=== PATIENT | female | born 2005 | race Caucasian/White ===

== ENCOUNTER 2023-08-24 15:33 | Observation (INO) ==
--- NOTE | 2023-08-24 15:41 | ED Triage Note ---
Date of Service August 24, 2023 Provider in Triage Author: Tila Hamlin History of Present Illness This patient was briefly evaluated while in triage. An abbreviated physical exam was performed. This patient is a 18-year-old Female who presents to the ED for evaluation of miscarriage. Evaluated in ED earlier and told she was having miscarriage. States she was told to return if she noticed "anything fleshy" and she did so she returns. Notes increased bleeding. No dizziness/lightheadedness, presyncope or syncope. Physical Exam Constitutional: alert and oriented x3. no acute distress. HEENT: normocephalic, atraumatic. normal conjunctiva.PERRLA. EOM's grossly intact. Respiratory:equal chest rise. normal respiratory effort, no accessory muscle use. Cardiovascular: regular rate and rhythm. MSK: moves all 4 extremities spontaneously Psych:appropriate mood and affect. Initial orders for labs and / or imaging were placed and patient was placed in the waiting area until a bed is available. Please see further documentation for the full ED course.
[2023-08-24] MEDS ORDERED: SODIUM CHLORIDE 0.9% 1,000 ML IV ONE ×2 (16:57→19:05)
[2023-08-24] MEDS ORDERED: MoRPHine SULFATE 4 MG/ML 1 ML CARP\\VIAL IV STA (16:57)
[2023-08-24] MEDS ORDERED: ONDANSETRON INJ 2 MG/ML 2 ML VIAL IV STA (16:57)
--- NOTE | 2023-08-24 17:01 | Emergency Department Note ---
Impression & Plan Missed , Anemia ED Provider Note CHIEF COMPLAINT: Vaginal bleeding, miscarriage HISTORY OF PRESENTING ILLNESS: This 18-year-old female patient presents to the emergency department with her fianc and sister for evaluation of increased vaginal bleeding while having a presumed miscarriage. The patient was seen in the ER earlier today for vaginal bleeding and abdominal cramping. She thought that she was about 12 weeks . She has not seen CLOTHES DESIGNER yet. When she was seen earlier today, laboratory studies were stable with a hemoglobin of 13.6. Serum hCG level was >248,400. The patient's blood type is A negative and she was given RhoGAM in the ER this morning. Pelvic ultrasound showed a viable with the uterus at around 10 weeks 2 days, but the sac was thought to be somewhat low-lying in the uterus and the heartbeat was mildly elevated. CLOTHES DESIGNER was contacted and the patient was to have outpatient follow-up for a threatened . After the patient got home, she stated that she passed what appeared to be a fetus with head, body, fingers and limbs. The patient then started passing large amounts of clots as well as a large amount of bright red blood and she became concerned. She had continued pelvic cramping, but not as bad as this morning. The patient denies any fevers. She denies any chest pain or shortness of breath. She has some mild nausea, but no vomiting. REVIEW OF SYSTEMS: See HPI for pertinent positives and pertinent negatives. ALLERGIES: NKDA MEDICATIONS: None PAST MEDICAL HISTORY: History of Anemia PHYSICAL EXAM: VITALS: Vitals are noted on the nurse's note and reviewed by myself. GENERAL: Non toxic, no acute distress, non-diaphoretic. SKIN: Capillary refill <2 sec. EYES: PERRLA. EOMI. Conjunctivae without injection, sclerae without icterus. NOSE: Patent without discharge. MOUTH: Mucous membranes moist. Uvula midline. Airway patent. NECK: Supple without nuchal rigidity. HEART: Regular rate and rhythm without murmurs gallops or rubs. LUNGS: Clear to auscultation bilaterally without wheezes, rales or rhonchi. No retractions or accessory muscle use. ABDOMEN: Positive bowel sounds x 4. Normal tympanic percussion. Soft, mildly tender to palpation in the suprapubic area. No masses or organomegaly. Urias sign negative. No guarding or rebound tenderness. No focal RLQ or LLQ tenderness. PELVIC EXAM: Permission to perform the exam. Fire Control Technician B in the room for the exam. External genitalia normal. Vaginal canal with a significant amount of bright red bleeding as well as multiple large blood clots. At the time of the initial exam a large blood clot was stuck in the cervical os with the cervical os being open. The bleeding did slow down after the large clot was removed from the cervical os. Repeat pelvic exam showed a similar picture with another large clot being stuck in the cervical os with improved bleeding after the blood clot was removed. Bimanual exam was deferred at this time. NEURO: Patient was alert and oriented. No focal neurological deficits. DIFFERENTIAL DIAGNOSIS: Differential diagnosis includes miscarriage, threatened , ectopic , subchorionic hematoma, placenta previa, coagulopathy, hormonal imbalance, or others. ED COURSE AND MEDICAL DECISION MAKING: MONITOR: Continuous filler shredder: Order was placed for continuous filler shredder. Patient was placed on the filler shredder and continuous pulse ox. Patient was noted to be in normal sinus rhythm at an initial rate of 90 bpm per my interpretation. MEDICATIONS GIVEN: 2 L of normal saline solution bolus. Morphine 4 mg IV and Zofran 4 mg IV. INTERPRETATION OF LABS: I interpreted the labs with full lab results as below in the lab section of this note. White blood cell count elevated at 13.07. Hemoglobin low at 11.8. Platelet count normal at 231. BMP without significant abnormalities. Serum hCG 181,694. INTERPRETATION OF IMAGING: Pelvic ultrasound as reviewed by myself and read by stat rad as below showed a gestational sac in the lower uterine segment and/or cervix which is open. The pole measures 2.49 cm consistent with 9 weeks 1 day. No cardiac activity is present consistent with demise and spontaneous in progress. However, based on the patient's history of passing what appeared to be the fetus as well as Dr. Pascal's evaluation of the ultrasound, the radiologist was contacted again to confirm whether there was a true gestational sac and pole or whether the findings were consistent with retained clot. The radiologist stated that it was difficult to determine the exact etiology of what he saw on the ultrasound. EXTERNAL RECORDS REVIEWED: I reviewed the patient's ER visit and workup from earlier today. CONSULTATIONS: Dr. Pascal of CL[employer] DES[employer]. Stat Rad Radiologist CRITICAL CARE: I have personally spent 60 minutes of critical care time in the direct management of this patient. This includes bedside care, interpretation of diagnostic studies, and testing, discussion with consultants, patient, and family members, and other required patient management activities. This 60 minutes is in excess of all separately billable procedures. MDM SUMMARY: The patient had previously been triaged by another provider and placed back in the waiting room due to abnormally long wait times in the emergency department. While I was then in triage, the check-in staff came to let me know that the patient was having significant vaginal bleeding in the waiting room. The only ER bed available at that time was a shared ER room, but I felt it was necessary to bring the patient back right away as the patient required an emergent pelvic exam due to her significant increase in vaginal bleeding with likely miscarriage. We were unable to obtain a pelvic bed immediately so the pelvic exam was initially performed using a bedpan for elevation. On the initial pelvic exam, the patient had a large amount of bright red vaginal bleeding. Multiple large cotton swabs were used to soak up the vaginal bleeding and multiple large clots were noted within the vaginal canal. Ring forceps were used to remove the large clots. I was finally able to visualize the cervix and there was a large clot within the cervical os which was open. Once I removed the large clot from the cervical os, the bleeding significantly improved. An IV lock was placed and labs were drawn at that time. The patient was given 1 L normal saline solution bolus as well as morphine and Zofran for her pain. Hemoglobin earlier today was 13.6 and her repeat hemoglobin decreased to 11.8. Her serum hCG level went from > 248,400 to 181,694. The patient's blood type is A- and she was already given RhoGAM in the ER earlier today. I spoke with the blood bank in order to hold blood for the patient in case she continued with significant bleeding. They stated that the patient required a repeat type and screen even though she had 1 done earlier today. Therefore, I placed a new order for a type and screen as well as a hold of 2 units of blood. Nursing staff came to get me again saying that the patient had return of significant bleeding. Repeat pelvic exam on a pelvic bed showed that the patient had a large amount of bright red blood in the vaginal canal that was able to be soaked up with large cotton swabs. Again multiple clots were removed with ring forceps and once I was able to visualize the cervical os, a large clot was coming out of the cervical os which was open. Once this clot was removed the vaginal bleeding again significantly improved. A [id number] repeat hemoglobin showed that her hemoglobin decreased down to 9.5. The patient was given a second liter of normal saline solution bolus. While on the monitor, the patient had intermittent episodes of tachycardia as well as hypotension, but her vital signs remained relatively stable. I contacted Dr. Pascal of [employer] at this time. He recommended a repeat pelvic ultrasound to determine whether the patient would require a D&E versus medication treatment. I spoke with the instrumentation and controls technician to prioritize the patient's pelvic ultrasound. Pelvic ultrasound as read by stat rad showed a gestational sac in the lower uterine segment and/or cervix which is open with a pole measuring 9 weeks 1 day with no cardiac activity present. However, based on the patient stating that she passed what sounded like the fetus prior to coming to the emergency department, there was question of whether this ultrasound finding was correct or whether it was a blood clot that was noted within the uterus. The radiologist from stat rad was contacted to try to help try to clarify the ultrasound report without good clarification. Dr. Pascal then performed his own pelvic exam as well as bedside ultrasound for further investigation. Please refer to his dictation for further details. Based on his evaluation, he does not feel that there is obvious tissue present. Therefore, he did not feel there was a strong reason for D&E at this time. The patient was given Pitocin by Dr. Pascal. The patient will be admitted for further evaluation and management to confirm no additional significant blood loss or other complications from her miscarriage. Please refer to Dr. Pascal's dictation for further details. The patient's care was transferred in stable condition. DIAGNOSIS: Missed Anemia Past Med/Surg History Medical History Anemia Social History Smoking Status: Never smoker Second Hand Exposure: No; Hx Alcohol Use: No Hx Substance Use: No Preferred Language: [place] Civil Cadd Technician Required: No Beliefs That Will Affect Care: None Current Living Situation: Significant Other Feels Safe at Home: Yes Safety Concerns: Feels Safe At This Time Assistive Devices: Glasses Allergies Allergies Allergy/AdvReac Type Severity Reaction Status Date / Time No Known Allergies Allergy Unverified 08/24/23 13:00 Home Meds Home Medications Medication Instructions Recorded Confirmed ferrous sulfate 325 mg (65 mg 325 mg PO QAM 04/23/23 08/25/23 iron) tablet (iron) Results & Data (ED) Vital Signs Vital Signs - 24 hr 08/24/23 15:39 08/24/23 19:25 08/24/23 19:30 Temperature 36.6 C Temperature Source Temporal Artery Scan Pulse Rate 101 H 101 H 101 H Pulse Rate [Apical] Pulse Rate from SpO2 Sensor 103 H 105 H Respiratory Rate 20 16 21 Respiratory Effort / Characteristics Non-Labored Respiratory Depth Normal Respiratory Pattern Blood Pressure Blood Pressure [Right Arm] Blood Pressure Mean Blood Pressure Mean [Right Arm] Blood Pressure Position [Right Arm] Pulse Oximetry 99 100 99 Oxygen Delivery Method Room Air Sepsis Recent Fever Within 48 Hours No Sepsis New/Unexplained Change in Mental Status No Sepsis Action Taken by Nursing No Action Required 08/24/23 20:07 08/24/23 20:07 08/24/23 20:08 Temperature Temperature Source Pulse Rate Pulse Rate [Apical] 87 Pulse Rate from SpO2 Sensor Respiratory Rate 18 Respiratory Effort / Characteristics Non-Labored Spontaneous Respiratory Depth Normal Respiratory Pattern Regular Blood Pressure 97/66 L Blood Pressure [Right Arm] 97/66 L Blood Pressure Mean 78 Blood Pressure Mean [Right Arm] 76 Blood Pressure Position [Right Arm] Lying Pulse Oximetry 97 100 Oxygen Delivery Method Room Air Room Air Sepsis Recent Fever Within 48 Hours Sepsis New/Unexplained Change in Mental Status Sepsis Action Taken by Nursing 08/24/23 20:09 08/24/23 20:10 08/24/23 20:15 Temperature Temperature Source Pulse Rate 90 85 89 Pulse Rate [Apical] Pulse Rate from SpO2 Sensor 89 87 89 Respiratory Rate 18 15 15 Respiratory Effort / Characteristics Respiratory Depth Respiratory Pattern Blood Pressure Blood Pressure [Right Arm] Blood Pressure Mean Blood Pressure Mean [Right Arm] Blood Pressure Position [Right Arm] Pulse Oximetry 100 100 99 Oxygen Delivery Method Sepsis Recent Fever Within 48 Hours Sepsis New/Unexplained Change in Mental Status Sepsis Action Taken by Nursing 08/24/23 20:15 08/24/23 20:20 08/24/23 20:30 Temperature Temperature Source Pulse Rate 94 H 99 H Pulse Rate [Apical] Pulse Rate from SpO2 Sensor 95 H 102 H Respiratory Rate 17 15 Respiratory Effort / Characteristics Respiratory Depth Respiratory Pattern Blood Pressure 106/67 Blood Pressure [Right Arm] Blood Pressure Mean 77 Blood Pressure Mean [Right Arm] Blood Pressure Position [Right Arm] Pulse Oximetry 93 100 Oxygen Delivery Method Sepsis Recent Fever Within 48 Hours Sepsis New/Unexplained Change in Mental Status Sepsis Action Taken by Nursing 08/24/23 20:30 08/24/23 20:40 08/24/23 20:45 Temperature Temperature Source Pulse Rate 93 H 94 H Pulse Rate [Apical] Pulse Rate from SpO2 Sensor 96 H 98 H Respiratory Rate 21 20 Respiratory Effort / Characteristics Respiratory Depth Respiratory Pattern Blood Pressure 109/73 Blood Pressure [Right Arm] Blood Pressure Mean 86 Blood Pressure Mean [Right Arm] Blood Pressure Position [Right Arm] Pulse Oximetry 100 99 Oxygen Delivery Method Sepsis Recent Fever Within 48 Hours Sepsis New/Unexplained Change in Mental Status Sepsis Action Taken by Nursing 08/24/23 20:45 08/24/23 20:50 Temperature Temperature Source Pulse Rate 88 Pulse Rate [Apical] Pulse Rate from SpO2 Sensor 88 Respiratory Rate 18 Respiratory Effort / Characteristics Respiratory Depth Respiratory Pattern Blood Pressure 113/66 Blood Pressure [Right Arm] Blood Pressure Mean 76 Blood Pressure Mean [Right Arm] Blood Pressure Position [Right Arm] Pulse Oximetry 100 Oxygen Delivery Method Sepsis Recent Fever Within 48 Hours Sepsis New/Unexplained Change in Mental Status Sepsis Action Taken by Nursing Laboratory Data 08/24/23 17:14 08/24/23 17:14 Lab Results 08/24/23 08/24/23 Range/Units 17:14 19:25 WBC 13.07 H (4.8-10.8) K/ul RBC 4.28 (4.20-5.40) M/uL Hgb 11.8 L (12.0-16.0) g/dl Hct 34.3 L (37.0-47.0) % MCV 80.1 (80.0-100.0) fL MCH 27.6 (25.0-34.0) pg MCHC 34.4 (32.0-36.0) g/dL RDW Std Deviation 38.5 (36.4-46.3) fL RDW Coeff of Alyssa 13.4 (11.5-14.5) % Plt Count 231 (130-400) K/uL MPV 10.2 (9.4-12.4) fL Immature Gran % (Auto) 0.4 % Neut % (Auto) 76.4 % Lymph % (Auto) 18.4 % [place] % (Auto) 4.1 % Eos % (Auto) 0.2 % Baso % (Auto) 0.5 % Neut # (Auto) 9.99 H (1.40-6.50) K/uL Lymph # (Auto) 2.41 (1.20-3.40) K/uL [place] # (Auto) 0.53 (0.11-0.59) K/uL Eos # (Auto) 0.02 (0.00-0.50) K/uL Baso # (Auto) 0.07 (0.00-0.20) K/uL Immature Gran # (Auto) 0.05 (0.01-0.20) K/uL Sodium 137 (136-145) mmol/L Potassium 3.7 (3.5-5.1) mmol/L Chloride 107 (98-107) mmol/L Carbon Dioxide 22 (21-32) mmol/L Anion Gap 8 (3-11) BUN 8 (6-23) mg/dl Creatinine 0.56 L (0.6-1.2) mg/dl Est Cr Clr Drug Dosing 127.2 ml/min Est GFR ( Amer) > 150.0 ml/min Est GFR (Non-Af Amer) 134.2 ml/min BUN/Creatinine Ratio 14.3 (10-20) Glucose 88 (70-99(Fasting)) mg/dl Calcium 8.7 (8.6-10.3) mg/dl HCG, Quant 153574 mIU/ml Blood Type Cancelled Blood Type Recheck A Negative Rho(D) Type Cancelled Antibody Screen Cancelled Crossmatch See Detail Administered Medications Oxytocin/Lactated Ringer's (Pitocin 20 Units/Lr) 1,002 mls @ 125 mls/hr IV .Q8H1M YASMEEN Stop: 09/23/23 21:37 Last Infusion: 08/25/23 01:00 Dose: 125 mls/hr Documented By: JAS Co-signed By: CAROLIN Admin: 08/24/23 22:20 Dose: 125 mls/hr Documented By: SUKHJINDER Co-signed By: ES Discontinued Medications Sodium Chloride (Nss) 1,000 mls @ 999 mls/hr IV .Q1H1M ONE Stop: 08/24/23 17:57 Last Infusion: 08/24/23 22:33 Dose: Infused Documented By: Admin: 08/24/23 17:10 Dose: 999 mls/hr Documented By: IMANI Sodium Chloride (Nss) 1,000 mls @ 999 mls/hr IV .Q1H1M ONE Stop: 08/24/23 20:05 Last Infusion: 08/24/23 22:33 Dose: Infused Documented By: Admin: 08/24/23 19:24 Dose: 999 mls/hr Documented By: SUKHJINDER Morphine Sulfate (Morphine Sulfate 4 Mg/Ml 1 Ml Carp\Vial) 4 mg IV NOW STA Stop: 08/24/23 16:58 Last Admin: 08/24/23 17:12 Dose: 4 mg Documented By: IMANI Ondansetron HCl (Ondansetron Inj 2 Mg/Ml 2 Ml Vial) 4 mg IV NOW STA Stop: 08/24/23 16:58 Last Admin: 08/24/23 17:12 Dose: 4 mg Documented By: IMANI Imaging Data Radiologist's Impression: Ultrasound 08/24/23 18:59 Exam(s): US OB 1st TRIMESTER EXAM: US First Trimester , Transabdominal CLINICAL HISTORY: Reason for exam: miscarriage. TECHNIQUE: Real-time transabdominal obstetrical ultrasound of the maternal pelvis and a first trimester with image documentation. COMPARISON: No relevant prior studies available. FINDINGS: Gestation: There is a gestational sac in the lower uterine segment and/or cervix which is open. The pole measures 2.49 cm consistent with 9 weeks 1 day. No cardiac activity is present consistent with demise and spontaneous in progress. Uterus/cervix: The endometrial stripe is thickened measuring 3.7 cm and heterogenous. No abnormal vascularity is seen. The uterus measures 10.6 x 6.2 x 7.1 cm and is anteverted. No myometrial mass. Ovaries: The left ovary measures 2.9 x 1.4 x 1.9 cm. Doppler blood flow is normal. The right ovary measures 4.5 x 2.3 x 3 cm with a positive cyst within it. No mass. Free fluid: No free fluid. IMPRESSION: There is a gestational sac in the lower uterine segment and/or cervix which is open. The pole measures 2.49 cm consistent with 9 weeks 1 day. No cardiac activity is present consistent with demise and spontaneous in progress. Electronically signed by: Ananth Torres MD 08/24/23 20:20 PM Discharge Plan Visit Data Chief Complaint: Vaginal Bleeding Stated Complaint: POSSIBLE MISCARAGE, CRAMPING, BLEEDING/MORE FLESHY ED Provider: Maninder Best ED Midlevel Provider: Lynda Cisneros Discharge Problem: Missed , Anemia Patient Disposition: Admitted As Inpatient Condition: Good Discharge Instructions Interventions: ED Discharge Assessment Last Done: 08/24/23 21:38
[2023-08-24 17:45] LABS: Basophils # (auto) 0.07 K/uL (0.00-0.20); Basophils % (auto) 0.5 %; Eosinophils # (auto) 0.02 K/uL (0.00-0.50); Eosinophils % (auto) 0.2 %; Hematocrit (blood only) 34.3 % (37.0-47.0); Hemoglobin 11.8 g/dl (12.0-16.0); Immature Granulocytes # (auto) 0.05 K/uL (0.01-0.20); Immature Granulocytes % (auto) 0.4 %; Lymphocytes # (auto) 2.41 K/uL (1.20-3.40); Lymphocytes % (auto) 18.4 %; Mean Corpuscular Hemoglobin 27.6 pg (25.0-34.0); Mean Corpuscular Hgb Conc 34.4 g/dL (32.0-36.0); Mean Corpuscular Volume 80.1 fL (80.0-100.0); Mean Platelet Volume 10.2 fL (9.4-12.4); Monocytes # (auto) 0.53 K/uL (0.11-0.59); Monocytes % (auto) 4.1 %; Neutrophils # (auto) 9.99 K/uL (1.40-6.50); Neutrophils % (auto) 76.4 %; Platelet Count 231 K/uL (130-400); RDW Coefficient of Variation 13.4 % (11.5-14.5); RDW Standard Deviation 38.5 fL (36.4-46.3); Red Blood Count 4.28 M/uL (4.20-5.40); White Blood Count 13.07 K/ul (4.8-10.8)
[2023-08-24 18:02] LABS: Anion Gap 8 (3-11); BUN Creatinine Ratio 14.3 (10-20); Blood Urea Nitrogen 8 mg/dl (6-23); Calcium 8.7 mg/dl (8.6-10.3); Carbon Dioxide 22 mmol/L (21-32); Chloride 107 mmol/L (98-107); Creatinine Clr Calc Pharmacy 127.2 ml/min; Est GFR (African American) > 150.0 ml/min; Est GFR (Non-African American) 134.2 ml/min; Glucose 88 mg/dl (70-99(Fasting)); Potassium 3.7 mmol/L (3.5-5.1); Sodium 137 mmol/L (136-145)
[2023-08-24] MEDS ORDERED: SODIUM CHLORIDE 0.9% 250 ML IV PRN (19:24)
--- NOTE | 2023-08-24 20:20 | Ultrasound Report ---
Exam(s): US OB 1st TRIMESTER EXAM: US First Trimester , Transabdominal CLINICAL HISTORY: Reason for exam: miscarriage. TECHNIQUE: Real-time transabdominal obstetrical ultrasound of the maternal pelvis and a first trimester with image documentation. COMPARISON: No relevant prior studies available. FINDINGS: Gestation: There is a gestational sac in the lower uterine segment and/or cervix which is open. The pole measures 2.49 cm consistent with 9 weeks 1 day. No cardiac activity is present consistent with demise and spontaneous in progress. Uterus/cervix: The endometrial stripe is thickened measuring 3.7 cm and heterogenous. No abnormal vascularity is seen. The uterus measures 10.6 x 6.2 x 7.1 cm and is anteverted. No myometrial mass. Ovaries: The left ovary measures 2.9 x 1.4 x 1.9 cm. Doppler blood flow is normal. The right ovary measures 4.5 x 2.3 x 3 cm with a positive cyst within it. No mass. Free fluid: No free fluid. IMPRESSION: There is a gestational sac in the lower uterine segment and/or cervix which is open. The pole measures 2.49 cm consistent with 9 weeks 1 day. No cardiac activity is present consistent with demise and spontaneous in progress. Electronically signed by: Ananth Torres MD 08/24/23 20:20 PM
--- NOTE | 2023-08-24 21:18 | History & Physical Report ---
Date of Service August 24, 2023 Assessment & Plan (1) Missed : Plan: I reviewed the ultrasound images myself both earlier this afternoon and this evening there is a clear difference in the picture the evenings ultrasound does not look like tissue compared to the tissue seen earlier today and is significantly smaller I performed a bedside ultrasound here to as well this was abdominal probe but her bladder was full and I had good images of the uterus well there was some debris in the uterus noted there was no sac noted and specifically no fetus. Should be noted on exam which is done with lumber puller nurse that bleeding was minimal the cervical os was open I was able to briefly pass a sponge on a stick through the cervical os open and closed and no tissue came through no tissue within the os either. Patient tolerated this well. Since the patient has bounced back to already once to the ER after earlier visit we will admit her overnight I do not think there is a strong reason to do D&E at this stage as there is no obvious tissue and there despite the radiology report of stat rad's overnight. I did discuss with the on-call stat read Dr. Torres expressed my concerns that this was possibly not a fetus and he said yes this possibly could be organized clot regardless her imaging at bedside today afterwards was different as well with no sac even visualized. I did offer the patient D&E we discussed risks including bleeding infection and perforation I discussed that D&E is generally not considered gloria if it is just blood clots as these will pass on their own. I did discuss again this option a more conservative option of admitting her overnight starting her on Will initiate Pitocin as well to improve contractions and further expel any debris and blood clots History of Present Illness Primary Care Provider: NO PCP Patient of early was seen early this morning with bleeding was found to be 10 weeks 2 days at that time there was a viable heart rate she was sent home her bleeding increased and then she came back at that time an ultrasound was done and there was no viable heart rate a measurement of 9 weeks and 1 days was formed and there was no heart rate as mentioned patient's bleeding did increase several times here but now is decreased significantly. She is Rh- is already received RhoGAM she is medically well no other problems Allergies Allergy/AdvReac Type Severity Reaction Status Date / Time No Known Allergies Allergy Unverified 08/24/23 13:00 Home Medications Medication Instructions Recorded Confirmed Type ferrous sulfate 325 mg (65 mg 325 mg PO QAM 04/23/23 08/24/23 History iron) tablet (iron) Patient History Medical History Anemia Social History Smoking Status: Never smoker Preferred Language: Maori Feels Safe at Home: Yes Physical Exam Constitutional: WD/WN, vitals as above well developed and well nourished Respiratory: normal respiratory effort, lungs clear to auscultation normal respiratory effort Cardiovascular: RRR, no murmur, no edema Gastrointestinal (Abdomen): normal bowel sounds, soft, nontender, no hepatosplenomegaly Genitourinary: Done with lumber puller on speculum exam there is some minimal bleeding from the cervical os I did pass a sponge stick through the os just past the external cervical os no tissue was obtained no further bleeding patient tolerated this well Results & Data Vital Signs (Past 12 Hours) Vital Signs Temp Pulse Pulse Resp BP Pulse Ox O2 Del Method 08/24/23 20:07 100 Room Air 08/24/23 20:07 87 18 97/66 L 97 Room Air 08/24/23 15:39 97.9 F 101 H 20 99 Room Air Coding Level of Care Code 04138 ER DEPT VISIT MOD LVL 4 Diagnoses Missed O02.1
[2023-08-24] MEDS ORDERED: ONDANSETRON INJ 2 MG/ML 2 ML VIAL IV PRN (21:38)
[2023-08-24] MEDS ORDERED: OXYTOCIN 20 UNITS/LR 1,002 ML IV SCH (21:38)
[2023-08-25 07:01] LABS: Basophils # (auto) 0.05 K/uL (0.00-0.20); Basophils % (auto) 0.5 %; Eosinophils # (auto) 0.17 K/uL (0.00-0.50); Eosinophils % (auto) 1.8 %; Hematocrit (blood only) 25.2 % (37.0-47.0); Hemoglobin 8.5 g/dl (12.0-16.0); Immature Granulocytes # (auto) 0.07 K/uL (0.01-0.20); Immature Granulocytes % (auto) 0.7 %; Lymphocytes # (auto) 2.97 K/uL (1.20-3.40); Lymphocytes % (auto) 31.3 %; Mean Corpuscular Hemoglobin 27.6 pg (25.0-34.0); Mean Corpuscular Hgb Conc 33.7 g/dL (32.0-36.0); Mean Corpuscular Volume 81.8 fL (80.0-100.0); Mean Platelet Volume 10.7 fL (9.4-12.4); Monocytes # (auto) 0.49 K/uL (0.11-0.59); Monocytes % (auto) 5.2 %; Neutrophils # (auto) 5.73 K/uL (1.40-6.50); Neutrophils % (auto) 60.5 %; Platelet Count 151 K/uL (130-400); RDW Coefficient of Variation 13.4 % (11.5-14.5); Red Blood Count 3.08 M/uL (4.20-5.40); White Blood Count 9.48 K/ul (4.8-10.8)
--- NOTE | 2023-08-25 07:31 | Gynecologic Progress Note ---
Date of Service August 25, 2023 Assessment & Plan (1) Missed : Plan Pt felt well overnight. Bleeding seems to have stopped per pt. Pt s/p 1 bag of pitocin. At this point, pt is safe for D/C home with f/u in office. Admission and Anticipated Discharge Date Admission Date: August 24, 2023 Supervising Physician Co-Signing Physician Notes Resident Physician Supervision Note: I was present with Dr. Ramirez during the history and exam. I discussed the case with the resident and agree with the findings and plan as documented in the note. Any exceptions or clarifications are listed here: [None] Documented By: Yusra Pascal MD, FACOG Subjective Pt is a 18 yo female with a no significant past medical history who presents to the hospital on 08/24/23 for missed at 10 WGA. Today, pt states she is feeling well this morning. She states she has not noticed any bleeding overnight and that she really is not having any cramping. No questions or complaints at this time. Review of Systems Review of Systems: Constitutional: denies fever, chills, Cardio: denies chest pain, Resp: denies shortness of breath, cough GI: denies abdominal pain, nausea, vomiting, Physical Exam Physical Exam: General:Alert and oriented, no acute distress, HEENT: Normocephalic, moist oral mucosa, Cardio: Regular rate and rhythm, no murmur, Resp:Lungs clear to auscultation b/l, no wheezes or rhonchi, GI: Soft and nontender, nondistended, bowel sounds active Skin: Warm, pink, dry, Psych: Mood-affect congruence. Results & Data Vital Signs (Past 12 Hours) Vital Signs Temp Pulse Pulse Pulse Resp BP BP 08/24/23 23:55 36.9 C 86 18 110/64 08/24/23 22:45 103/72 08/24/23 22:45 84 16 08/24/23 22:40 83 16 08/24/23 22:30 88 17 08/24/23 22:30 108/60 08/24/23 22:28 106/63 08/24/23 22:28 91 H 16 08/24/23 20:50 88 18 08/24/23 20:45 113/66 08/24/23 20:45 94 H 20 08/24/23 20:40 93 H 21 08/24/23 20:30 109/73 08/24/23 20:30 99 H 15 08/24/23 20:20 94 H 17 08/24/23 20:15 106/67 08/24/23 20:15 89 15 08/24/23 20:10 85 15 08/24/23 20:09 90 18 08/24/23 20:08 97/66 L 08/24/23 20:07 08/24/23 20:07 87 18 97/66 L 08/24/23 19:30 101 H 21 Pulse Ox O2 Del Method 08/24/23 23:55 100 Room Air 08/24/23 22:45 08/24/23 22:45 100 08/24/23 22:40 100 08/24/23 22:30 99 08/24/23 22:30 08/24/23 22:28 08/24/23 22:28 98 08/24/23 20:50 100 08/24/23 20:45 08/24/23 20:45 99 08/24/23 20:40 100 08/24/23 20:30 08/24/23 20:30 100 08/24/23 20:20 93 08/24/23 20:15 08/24/23 20:15 99 08/24/23 20:10 100 08/24/23 20:09 100 08/24/23 20:08 08/24/23 20:07 100 Room Air 08/24/23 20:07 97 Room Air 08/24/23 19:30 99 Resident Activity Tracking Resident Involvement: Resident Care Provided Care Provided: OB Delivery
[2023-08-25] MEDS ORDERED: FERROUS SULFATE 325 MG TAB PO SCH (09:00)
[2023-08-26 11:40] LABS: iSTAT Creatinine 0.4 mg/dl; iSTAT Hemoglobin 9.5 g/dl (12.0-16.0); iSTAT Ionized Calcium 1.17 mmol/l
--- NOTE | 2023-08-30 15:21 | Discharge Summary ---
Date of Service August 30, 2023 Admission HPI Per Admitting Provider Patient of early was seen early this morning with bleeding was found to be 10 weeks 2 days at that time there was a viable heart rate she was sent home her bleeding increased and then she came back at that time an ultrasound was done and there was no viable heart rate a measurement of 9 weeks and 1 days was formed and there was no heart rate as mentioned patient's bleeding did increase several times here but now is decreased significantly. She is Rh- is already received RhoGAM she is medically well no other problems Admission Exam (Per Admitting) Constitutional WD/WN, vitals as above well developed and well nourished Respiratory normal respiratory effort, lungs clear to auscultation normal respiratory effort Cardiovascular RRR, no murmur, no edema Gastrointestinal (Abdomen) normal bowel sounds, soft, nontender, no hepatosplenomegaly Discharge Data Consultations 08/24/23 21:15 ED Decision to Admit Stat Hospital Course (1) Missed : Plan Pt felt well overnight. Bleeding seems to have stopped per pt. Pt s/p 1 bag of pitocin. At this point, pt is safe for D/C home with f/u in office. Supervising Physician Co-Signing Physician Notes Resident Physician Supervision Note: I was present with Dr. Ramirez during the history and exam. I discussed the case with the resident and agree with the findings and plan as documented in the note. Any exceptions or clarifications are listed here: [None] Documented By: Yusra Pascal MD, FACOG Coding Level of Care Code None Diagnoses Missed O02.1
== END 2023-08-25 10:55 | disposition home or self-care (01) ==
LOC: ED 15:33 → EDINP 15:33 → 4E1 21:38